=== PATIENT | male | born 1990 | race Caucasian/White ===

== ENCOUNTER → 2021-05-13 | Outpatient (CLI) | payer OTHER ==
--- NOTE | 2021-05-13 09:37 | REP ---
INDICATION: RT KNEE PAIN. COMPARISON: None. TECHNIQUE: AP, lateral, sunrise views of the right knee FINDINGS: The tibiofemoral joint space is normal. Piney view demonstrates subtle increased sclerosis along the posterior patellar margin with lateral patellofemoral joint space narrowing. No evidence for acute fracture or dislocation. No effusion. 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 <Electronically signed by Sloan Carias > 05/13/21 [id number]
--- NOTE | 2021-05-13 09:38 | REP ---
INDICATION: RT KNEE PAIN. COMPARISON: None. TECHNIQUE: AP and lateral views right tibia/fibula FINDINGS: Osseous structures, joint spaces, and surrounding soft tissues are essentially age-appropriate and normal. No evidence for acute fracture or dislocation no subcutaneous emphysema or foreign body. IMPRESSION: Normal right tibia/fibular radiographs. <Electronically signed by Sloan Carias > 05/13/21 [id number]
== END ==
LOC: M SOG 08:57
PROVIDERS: ATTEND Orthopaedic Surgery Sports Medicine
DX: M25.561 Pain in right knee (principal)

== ENCOUNTER → 2022-08-24 | Outpatient (CLI) | payer OTHER | LOC: M WUC 12:53 | PROVIDERS: ATTEND Nurse Practitioner Family | DX: M79.641 Pain in right hand (principal); M25.441 Effusion, right hand ==

== ENCOUNTER 2022-12-23 08:30 | Emergency (ER) | payer OTHER ==
[~2022-12-23] VITALS: Ht 190.5 cm; Wt 126.8 kg
[2022-12-23] MEDS ORDERED: CEPHALEXIN 500 MG CAP PO ONE (11:55)
[2022-12-23] MEDS ORDERED: NEOSPORIN OINT 0.9 GM PKT TOP ONE (11:55)
[2022-12-23] MEDS ORDERED: LIDOCAINE 1% MDV 20ML VIAL SC ONE (11:55)
[2022-12-23] MEDS ORDERED: CEPH500C PO (13:36)
[2022-12-23] MEDS ORDERED: IBUP-1022 PO (13:37)
[2022-12-23 13:41] VITALS: BP 150/90; TEMP 97.2; O2SAT 100
== END 2022-12-23 13:46 | disposition home or self-care (01) ==
LOC: M ED 08:30
DX: S61.412A Laceration without foreign body of left hand, initial encounter (principal); S66.922A Laceration of unspecified muscle, fascia and tendon at wrist and hand level, left hand, initial encounter; W31.2XXA Contact with powered woodworking and forming machines, initial encounter; Y99.0 Civilian activity done for income or pay; Z79.1 Long term (current) use of non-steroidal anti-inflammatories (NSAID); Z79.899 Other long term (current) drug therapy

== ENCOUNTER → 2023-02-09 | Outpatient (CLI) | payer OTHER ==
[~2023-02-09] MED LIST: CEPH500C PO; IBUP-1022 PO
== END ==
LOC: M RAD 13:30
PROVIDERS: ATTEND Family Medicine
DX: M71.21 Synovial cyst of popliteal space [Baker], right knee (principal)

== ENCOUNTER → 2023-02-15 | Outpatient (CLI) | payer OTHER | LOC: M SOG 08:05 | PROVIDERS: ATTEND Orthopaedic Surgery | DX: M25.561 Pain in right knee (principal); M25.562 Pain in left knee ==